=== PATIENT | female | born 1990 | race Caucasian/White ===

== ENCOUNTER 2024-08-07 12:40 | Outpatient (CLI) | payer OTHER, SELFPAY ==
--- OUTSIDE RECORDS SUMMARY | 2024-08-07 12:42 | XMS_ITS | Clinical Summary ---
Author Organization [employer] [facility] Address [place], [place] [address] Care Team Providers Care Drum Builder Name Role Phone Kimberly Hayes MD Primary Care Provider [phone] Allergies No known active allergies Medications Medication Sig Dispensed Refills Start Date End Date Status acetaminophen (TYLENOL EXTRA STRGTH) 500 mg tabletIndications :40 weeks gestation of Take 2 tablets by mouth every 6 hours if needed. Max acetaminophen dose: 4000mg in 24 hrs. 60 tablet 01/03/2020 Active ibuprofen (ADVIL; MOTRIN) 600 mg tabletIndications :40 weeks gestation of Take 1 tablet by mouth every 6 hours if needed for Pain. Maximum of 3200 mg in 24 hours. 60 tablet 01/03/2020 Active vitamin-folic acid 1 mg ( RX) tablet/capsuleInd ications:Vaginal delivery Take 1 tablet by mouth once daily. 100 tablet 01/03/2020 Active docusate (COLACE) 100 mg capsuleIndication s:Vaginal delivery Take 1 capsule by mouth once daily. 100 capsule 01/03/2020 Active Breast Pump - PurchaseIndicatio ns:Vaginal delivery Electric breast pump for home use. Gestation age at delivery: 40 weeks. Reason for need: Assist with breast feeding. Length of need: 24 months 1 Device 01/03/2020 Active Active Problems Problem Noted Date Diagnosed Date 40 weeks gestation of 01/02/2020 GERD (gastroesophageal reflux disease) Rh negative status during Family History Medical History Relation Name Comments Nephrolithiasis Paternal Grandmother Relation Name Status Comments Paternal Grandmother Social History Tobacco Use Types Packs/Day Years Used Date Smoking Tobacco: Never Smokeless Tobacco: Never Tobacco Cessation:Counseling Given: No Alcohol Use Standard Drinks/Week Comments Never 0 (1 standard drink = 0.6 oz pur e alcohol) Sex and Gender Information Value Date Recorded Sex Assigned at Not on file Gender Identity Not on file Sexual Orientation Not on file Obstetrics History Para Term AB IAB SAB Ectopic Multiple Livin g Live Births 1 1 1 0 0 0 0 0 0 1 1 Date Outcome GA Total Labor Labor/2nd/3rd Weight Sex Type Anes PTL Mahi A1 A5 Name Clin 2019 Term 40w 1d 0h 04m 3.02 kg (6 lb 10.7 oz) M Vag-S pont Epidur al Livin g 8 9 DANIEL FRAIRE Complications:None Delivery Location:[facility] Last Filed Vital Signs Vital Sign Reading Time Taken Comments Blood Pressure 119/82 01/03/2020 8:15 AM CDT Pulse 94 01/03/2020 8:15 AM CDT Temperature 36.6 ??C (97.8 ??F) 01/03/2020 8:15 AM CD T Respiratory Rate 16 01/03/2020 8:15 AM CDT Oxygen Saturation 97% 01/01/2020 9:35 PM CDT Inhaled Oxygen Concentration - - Weight 72.7 kg (160 lb 4.8 oz) 01/03/2020 6:15 A M CDT Height 170.2 cm (5' 7) 01/01/2020 3:53 AM CDT Body Mass Index 25.11 01/01/2020 3:53 AM CDT Plan of Treatment Health Maintenance Due Date Last Done Comments Tdap 2001 Depression screening for age 12+ 2002 HIV for age 15-65 2005 BMI (ht and wt on same day) for age 18+ 2008 Hepatitis C screening for ag e 18-79 2008 Tetanus booster 2010 COVID-19 vaccine series ( season) 2024 Influenza for age 9-49 06/10/2024 Pap test for age 21-65 12/15/2024 2, 12/15/2021 Pneumococcal series for age 6-64 Aged Out No longer eligible b ased on patient's age to complete this topic Procedures Procedure Name Priority Date/Time Associated Diagnosis Comments HPV HIGH RISK Routine 12/15/2021 9:20 AM COOK CANDY from Last 3 Months or Most Recently Relevant to Health Maintenance Results * HPV HIGH RISK (12/15/2021 9:20 AM COOK CANDY) TYPE 16 Negative Negative 12/17/2021 10:49 AM COOK CANDY [facility] TYPE 18 Negative Negative 12/17/2021 10:49 AM COOK CANDY [facility] OTHER HIGH RISK TYPES Negative Negative 12/17/2021 10:49 AM COOK CANDY [facility] Other (Cervical/Vagina l) 12/15/2021 9:20 AM COOK CANDY 12/16/2021 7:56 AM COOK CANDY Narrative [facility] - 12/17/2021 10:49 AM COOK CANDY HPV types 16, 18, 31, 33, 35, 39, 45, 51, 52, 56, 58, 59, 66 and 68 DNA were undetectable or below the pre-set threshold. Methodology: Jennifer Carlie 4800 HPV Test Giselle CLEMENS MICROBIOLOGY [facility] [address] [place] [address], from Last 3 Months or Most Recently Relevant to Health Maintenance Advance Directives * Full Code (Latest Code Status on File) Date Activated Date Inactivated Comments 01/01/2020 1:10 PM 01/03/2020 1:40 PM Question Answer Comments Code Status Discussion: Discussed Care Teams Drum Builder Relationship Specialty Start Date End Date Kimberly Hayes MD [address] [place] [address] [facility] - General 10/12/19
--- NOTE | 2024-08-07 13:00 | US_ITS ---
Patient: MONROE FRAIRE Facility:?[facility] Patient ID:?[id number] Site Patient ID:?[id number]. Site :?1990 Study:?US-OB Pelvis dating >14 weeks-08/07/2024 1:11:50 PM Ordering Physician:Gris Roberts Final Report: INDICATION: 2nd trimester ultrasound for dating and viability. TECHNIQUE: Ultrasound OB pelvis transabdominal. Real-time tapia-scale imaging of the fetus was performed. COMPARISON: None. FINDINGS: Single live intrauterine gestation in transverse position. Placenta is posterior. Cervical length measures 4.0 centimeter. heart rate measures 155 beats per minute. Single largest vertical pocket of amniotic fluid measures 4.8 cm. Biometry: BPD: 3.6 cm, 17 weeks 0 day HC: 13.3 cm, 16 weeks 6 day AC: 11.8 cm, 17 weeks 4 day FL: 2.4 cm, 17 weeks 1 day Estimated weight is 187 gram +/-28 gm (91 percentile). age by ultrasound 17 weeks 1 day PAVAN by ultrasound 01/14/2025 IMPRESSION: Single viable intrauterine with estimated gestational age of 17 weeks 1 day and weight of 187 gram. Dictated by Shara Balbuena MD @ 08/08/2024 11:00:34 AM Signed by:?Shara Balbuena MD @08/08/2024 11:00:34 AM (Electronic Signature)
== END 2024-08-07 12:41 | disposition home or self-care (01) ==
LOC: US 12:41
PROVIDERS: Visit Provider Advanced Practice Midwife
DX: Z34.92 Encounter for supervision of normal pregnancy, unspecified, second trimester (principal); Z3A.17 17 weeks gestation of pregnancy
CPT/HCPCS: 76815; 86592; 86703; 86704; 86706; 86762; 86787; 86803; 86850; 86900; 86901; 87086; 87340

== ENCOUNTER 2024-09-04 13:54 | Outpatient (CLI) | payer OTHER, SELFPAY ==
--- NOTE | 2024-09-04 13:45 | CRLHL7_ITS ---
For Patients: As a result of the Century Cures Act, medical imaging exams and procedure reports are released immediately into your electronic medical record. You may view this report before your referring provider. If you have questions, please contact your health care provider. INDICATION: Evaluate anatomy. COMPARISON: 08/07/2024 TECHNIQUE: Real time tapia scale imaging of the fetus was performed as well as color Doppler analysis of the umbilical vessels. FINDINGS: Sonographic imaging demonstrates a single living intrauterine gestation. Fetus demonstrates a regular cardiac rate of 155 beats per minute. Fetus has a variable position. The placenta lies posterior fundal without evidence of placenta previa. Placental edge located 7.9 cm from the internal cervical os. Amniotic fluid volume appears normal. Single deepest vertical pocket: 6.1 cm. The cervix is closed and measures 5.4 cm in length. The composite ultrasound gestational age is calculated at 21 weeks 3 days with an estimated sonographic due date of 01/12/2025. The estimated weight is 438 grams which lies at the 96th %. The following biometric measurements were obtained: Biparietal diameter: 4.9 cm/20 weeks 5 days 61st% Head circumference: 18.4 cm/20 weeks 6 days 59th% Abdominal circumference: 17.0 cm/22 weeks 0 days 88th% Femur length: 3.6 cm/21 weeks 3 days 77th% The HC/AC ratio measures: 1.08 range (1.06-1.24) On anatomic survey, there is a normal appearance of the cerebral ventricles, cavum septi pellucidi, cisterna magna and cerebellum. The nose, lips, and facial profile appear normal. The cervical, thoracic and lumbar spine are not well visualized. There is a normal four-chamber heart view and the left and right ventricular outflow tracts appear normal. The diaphragm and stomach appear normal. The kidneys and bladder also appear normal. There is a normal three-vessel cord and cord insertion site. The four extremities appear normal. IMPRESSION: Sonographic gestational age 21 weeks 3 days and a sonographic due date of 01/12/2025. Sonographic age 1 week ahead of the clinical age. Estimated weight 96th percentile. Abdominal circumference 88th percentile. Incomplete visualization of the spine. Remainder of the anatomic survey normal. Short-term follow-up recommended. Dictated by Kentrell Sherman MD @ 09/05/2024 12:16:23 PM (Electronically Signed)
--- OUTSIDE RECORDS SUMMARY | 2024-09-04 13:56 | XMS_ITS | Clinical Summary ---
Author Organization [employer] [facility] Address [place], [place] [address] Care Team Providers Care Litigation Specialist Name Role Phone Kimberly Hayes MD Primary Care Provider [phone] Allergies No known active allergies Medications Medication [...] g 8 9 DANIEL FRAIRE Complications:None Delivery Location:[facility] Last Filed Vital Signs Vital Sign Reading Time Taken Comments Blood Pressure 119/82 01/03/2020 8:15 AM CDT Pulse 94 01/03/2020 8:15 AM CDT Temperature 36.6 C (97.8 F) 01/03/2020 8:15 AM CDT Respiratory Rate 16 01/03/2020 8:15 AM CDT [...] 2008 Tetanus booster 2010 COVID-19 vaccine series (2023- season) 2024 Influenza for age 9-49 06/10/2024 Pap test for age 21-65 12/15/2024 2, 12/15/2021 Pneumococcal series for age 6-64 Aged Out No longer eligible b ased on patient's age to complete this topic Procedures Procedure Name Priority Date/Time Associated Diagnosis Comments HPV HIGH RISK Routine 12/15/2021 9:20 AM [facility] TECHNICIAN from Last 3 Months or Most Recently Relevant to Health Maintenance Results * HPV HIGH RISK (12/15/2021 9:20 AM [facility]OR[facility] TECHNICIAN) TYPE 16 Negative Negative 12/17/2021 10:49 AM [facility] TECHNICIAN [facility] TYPE 18 Negative Negative 12/17/2021 10:49 AM [facility] LABORATORY TECHNICIAN [facility] OTHER HIGH RISK TYPES Negative Negative 12/17/2021 10:49 AM [facility] LABORATORY TECHNICIAN [facility] Other (Cervical/Vagina l) 12/15/2021 9:20 AM [facility] LABOR[facility] TECHNICIAN 12/16/2021 7:56 AM [facility]ORATORY TECHNICIAN Narrative [facility] - 12/17/2021 10:49 AM [facility] TECHNICIAN HPV types 16, 18, 31, 33, 35, 39, 45, 51, 52, 56, 58, 59, 66 and 68 DNA were undetectable or below the pre-set threshold. Methodology: Jennifer Carlie 4800 HPV Test Giselle CLEMENS MICROBIOLOGY [facility] [address] [place] [address], from Last 3 Months or Most Recently Relevant to Health Maintenance Advance Directives * Full Code (Latest Code Status on File) Date Activated Date Inactivated Comments 01/01/2020 1:10 PM 01/03/2020 1:40 PM Question Answer Comments Code Status Discussion: Discussed Care Teams Litigation Specialist Relationship Specialty Start Date End Date Kimberly Hayes MD [address] [place] [address] [facility] - General 10/12/19
== END 2024-09-04 13:55 | disposition home or self-care (01) ==
LOC: US 13:55
PROVIDERS: Visit Provider Advanced Practice Midwife
DX: Z34.92 Encounter for supervision of normal pregnancy, unspecified, second trimester (principal); Z3A.21 21 weeks gestation of pregnancy
CPT/HCPCS: 76805

== ENCOUNTER 2024-10-30 10:42 | Outpatient (CLI) | payer OTHER, SELFPAY | END 2024-10-30 10:43 | disposition home or self-care (01) | LOC: NFLDREF 10-31 01:56 | PROVIDERS: Visit Provider Physician Assistant | DX: Z34.83 Encounter for supervision of other normal pregnancy, third trimester (principal) | CPT/HCPCS: 85461; 86592; 86850 ==

== ENCOUNTER 2024-12-25 15:17 | Outpatient (CLI) | payer OTHER, SELFPAY ==
[2024-12-26 13:31] LABS: Strep B DNA Probe Negative (Negative)
[2024-12-26 13:52] LABS: Strep B Susceptibility Needed? No
== END 2024-12-25 15:18 | disposition home or self-care (01) ==
LOC: NFLDREF 15:17
PROVIDERS: Visit Provider Advanced Practice Midwife
DX: Z34.93 Encounter for supervision of normal pregnancy, unspecified, third trimester (principal); Z3A.36 36 weeks gestation of pregnancy
CPT/HCPCS: 87081; 87653

== ENCOUNTER 2025-01-17 11:12 | Inpatient (IN) | payer OTHER, SELFPAY ==
[2025-01-17] VITALS (11 sets, daily range): BP systolic 112–131; BP diastolic 59–80; PULSE 75–95; RESP 16–18; TEMP 36.5–36.6; O2SAT 97–100; BMI 27.7
--- NOTE | 2025-01-17 11:28 | P.LDBA_ITS ---
Subjective History of Present Illness Date Seen: 01/17/25 Narrative: Patient is being admitted to Labor and Delivery for delivery of her in the car on the way to the hospital. She is a 34 year old at 39.5 weeks gestation. Her full history and physical was dictated by [] on []. Please see this for details. [] Specific Issues/Plans Partner: Franklin?(interested in assisting with , discuss further at next visit) H&P:? []? # Rh negative? * Rhogam at 28 wks-10/30/24 * PP-? #? PNC started at 16 weeks pt choice # Incomplete views of the spine Recommended follow-up in weeks: patient declined ? Imaging:??? [Summary of level II or follow up US here; BPP scores not necessary]? Vaccinations:?? COVID: initial series, not boosted, declined booster Flu: declined Tdap: declined 32 week mental health: PHQ - 0/JOHN - 0 34 wk HGB: 14.2? Last pap:? [Only high-risk abnormal pap results in problem list]? Comments: Assessment:??G[ ] P[ ] at [ ] weeks gestation?? GBS [negative/positive]? Patient is coping [] with challenges of labor.?? Labor type: [Induced/Spontaneous], [Early/Active] labor? Category [1, 2, 3] FHR pattern.? complicated by: [] Plan:?? * ?Admit to L & D? * IV access: * Monitoring per policy: [continuous or intermittent]? * Candidate for analgesia of choice.? Planning [] for pain management * [Desires waterbirth.? Consent signed and Hep C negative] * [Expectant management at this time] [Reviewed risks and benefits of IOL with Cook balloon, Pitocin vs Cytotec/Cervidil. Pt prefers Cytotec. Pitocin to follow if needed.] * [GBS prophylaxis initiated for GBS positive status. Will treat with antibiotics per protocol.] * [Monitor blood pressures. Consider labs if continue to be elevated.]? * Patient encouraged to reposition and ambulate to promote physiologic labor and . * Anticipate ? OB Exam Physical Exam Vital signs: Pulse BP Pulse Ox 83 124/59 L 100 01/17/25 11:16 01/17/25 11:16 01/17/25 11:16 Detailed Labor and Delivery Exam Patient Gravid: Yes
--- NOTE | 2025-01-17 11:30 | P.OBHP_ITS ---
OB - H&P: HPI Labor/Induction History of Present Illness Date Seen: 01/17/25 Chief Complaint: The patient is a 34 year old 4 para 2 at 39.5 weeks gestation by LMP, who presents after delivery of her daughter in the car on the way to the hospital. Chief complaint: maternity : 4 Para: 3 Date of last menstrual period: 04/14/24 Estimated date of delivery: 01/19/25 Gestational age based on last menstrual period: 39 Narrative: Mone Casey is a 34 year old female Here care started at 16.3 weeks by patient choice. She has had limited care since with a total of 6 visits. Ultrasounds First trimester: Single viable intrauterine with estimated gestational age of 17 weeks 1 day and weight of 187 gram. Anatomy scan: Sonographic gestational age 21 weeks 3 days and a sonographic due date of 01/12/2025. Sonographic age 1 week ahead of the clinical age. Estimated weight 96th percentile. Abdominal circumference 88th percentile. Incomplete visualization of the spine. Remainder of the anatomic survey normal. Short-term follow-up recommended. Specific Issues/Plans Partner: Franklin?(interested in assisting with , discuss further at next visit) H&P:? []? # Rh negative? * Rhogam at 28 wks-10/30/24 * PP-? #? PNC started at 16 weeks pt choice # Incomplete views of the spine Recommended follow-up in weeks: patient declined ? Imaging:??? [Summary of level II or follow up US here; BPP scores not necessary]? Vaccinations:?? COVID: initial series, not boosted, declined booster Flu: declined Tdap: declined 32 week mental health: PHQ - 0/JOHN - 0 34 wk HGB: 14.2? Last pap:? [Only high-risk abnormal pap results in problem list]? History of Present Dating criteria: based on LMP care: limited care Ultrasounds: normal 1st trimester US and other Abnormal ultrasound findings: incomplete view of the spine, patient declined further follow up. Medical complications: none Labs Blood type: 0 (-) negative Review of Systems Status of ROS: Reports: 10 or more systems reviewed and unremarkable except as noted in History and below Meds Home Medications and Allergies Home Medications ?Medication ?Instructions ?Recorded ?Confirmed ?Type vit 168-iron 27 mg-folic cap PO 08/07/24 01/11/25 History acid 800 mcg-omega3 235 mg capsule (One-A-Day -1) Allergies Allergy/AdvReac Type Severity Reaction Status Date / Time No Known Drug Allergies Allergy Verified 01/11/25 14:32 OB - H&P: Exam Physical Exam: Vital signs: Pulse BP Pulse Ox 83 124/59 L 100 01/17/25 11:16 01/17/25 11:16 01/17/25 11:16 Narrative: VSS? General Appearance:? Alert,?appropriate appearance?for age. No acute distress? HEENT Exam:? Grossly?normal.? Chest/Respiratory Exam: Normal respiratory effort, symmetrical chest wall rise. Clear to auscultation.? Cardiovascular Exam: Regular rate and rhythm. S1, S2, no murmur, click, gallop, or rubs.? Gastrointestinal Exam: non-tender?? Musculoskeletal Exam: Back is straight and non-tender, full ROM of upper and lower extremities.? Skin: no rash or abnormalities? Neurologic Exam: Normal gait and speech, no tremor.? Psychiatric Exam: Alert and oriented, appropriate affect.??? OB - Problem Based A/P Additional Plan (1) care and examination immediately after delivery: Status: Acute (2) Lactating mother: Status: Acute (3) Rh negative status during : Status: Acute (4) Precipitous delivery, delivered (current hospitalization): Status: Acute Plan G4 now P3 admitted at 39.5 weeks after precipitous delivery in car on the way to the hospital problems: Rh negative-received Rhogam at 28 weeks Limited care Incomplete views of the spine on anatomy scan Delivery/Labor/Induction Plan Plan: other
--- NOTE | 2025-01-17 11:43 | W.PM.OBVAGDE ---
OB Procedure Vag Delivery Mother Details Mother Details: The patient is a 34 year-old, 4, Para 3, admitted on 01/17/25 at 39.5 weeks gestation. : 4 Para: 3 Weeks Gestation: 39.5 Admission Date: 01/17/25 Additional Details Amniotic Membrane Status: SROM Amniotic Membrane Rupture Date: 01/17/25 Amniotic Membrane Fluid Description: Clear Analgesia/Anesthesia Type: None Waterbirth: No Intrapartal Events: Precipitous Labor <3 Hrs Labor Onset: 08:00 Heart: Not monitored Delivery Details Delivery Date: 01/17/25 Delivery Time: 11:01 Route of delivery: Infant Gender: Female Infant Viability: Alive; Heart Rate Present Delivery Details: 34?y.o?at 39.5 weeks.? Delivered via spontaneous vaginal delivery in the car on the way to the hospital. Patient reports delivery time as 1101, reports her water broke in the car and she delivered shortly after. On arrival she was holding skin to skin with umbilical cord intact. Placenta was delivered once brought to delivery room at 1120 and appeared intact. Cord was clamped and cut just prior to placenta delivery by FOB. ? Infant weight pending. ?? ? Spontaneous vaginal delivery of?a viable? female .?? Shoulder dystocia: no?? Meconium stained?fluid: no? Water : no? ? ? Weight is pending. ? Placenta delivered spontaneously and?complete?at 1120 with a?3 vessel?cord.?? Bleeding controlled with fundal massage.? ? Lacerations:? intact ? Bleeding?post delivery?was: minimal. ?The fundus was firm to palpation.? Blood loss: 25?mL.? Blood loss measurement type: QBL? There did not appear to be any blood loss in the car. Visualized as patient was transferred from car to wheelchair. ? ? Sponge,?lap?and needles counts are correct.? Mother and were stable after delivery.? Additional Details Shoulder Dystocia: No Placenta Delivery Time: 11:20 Placental Delivery Description: Spontaneous Procedure Done: Global Blood Loss: 25 Laceration: None Blood Loss Measurement Type: QBL Bakri Used: No Sponge/Need Count Correct: Yes Cord Vessel Description: 3 Vessels Event Summary Status: Mother and infant were stable after delivery. Disposition: floor
[2025-01-18 00:03] VITALS: BP 121/75; PULSE 76; RESP 16; TEMP 36.4
[2025-01-18 04:30] VITALS: BP 113/76; PULSE 87; RESP 16; TEMP 36.4; O2SAT 99
[2025-01-18 05:50] LABS: Hemoglobin* 14.1 gm/dL (12.0-16.0)
--- NOTE | 2025-01-18 07:50 | P.DS_ITS ---
Documented by User: Jewell Blanca 01/18/25 08:11 DS: Providers Provider Time Seen by Provider: 07:50 Date Seen: 01/18/25 Date of admission: 01/17/25 11:12 Primary care physician: Kimberly Hayes MD Admitting Clinician: Alejandra Hi CNM Attending Physician on discharge: Puma Taylor CNM Date of Discharge: 01/18/25 DS: Diagnosis Discharge Diagnosis (1) Lactating mother: Status: Acute (2) care following vaginal delivery: Status: Acute (3) Rh negative status during : Status: Acute Exam Narrative: Exam Narrative: Vitals Reviewed Constitutional:? Alert and oriented x3 HEENT:? Normocephalic, atraumatic Neck:? Supple Lungs:? Clear to auscultation bilaterally Heart:? Regular rate and rhythm, no murmur, rub or gallop Abdomen:? Soft, nontender. FUNDUS: firm, -1, left Extremities:? No edema or erythema NEURO: Normal speech. Const: Vital Signs, click to edit/add: Vital Signs - 24 hr 01/17/25 11:16 01/17/25 11:33 01/17/25 11:46 Temperature Pulse Rate 83 90 77 Pulse Rate [Blood Pressure Cuff] Respiratory Rate Blood Pressure 124/59 L 126/66 125/68 Blood Pressure [Le ft Arm] Pulse Oximetry 100 Oxygen Delivery [facility] 01/17/25 12:01 01/17/25 12:16 01/17/25 12:31 Temperature Pulse Rate 80 75 81 Pulse Rate [Blood Pressure Cuff] Respiratory Rate Blood Pressure 112/70 116/70 118/74 Blood Pressure [Le ft Arm] Pulse Oximetry Oxygen Delivery [facility] 01/17/25 12:46 01/17/25 13:01 01/17/25 13:16 Temperature Pulse Rate 93 95 Pulse Rate [Blood Pressure Cuff] Respiratory Rate Blood Pressure 115/68 119/69 120/73 Blood Pressure [Le ft Arm] Pulse [facility] 01[facility] 15:51 01/17/25 20:48 01/18/25 00:03 Temperature 97.8 F 97.7 F 97.6 F Pulse Rate Pulse Rate [Blood Pressure Cuff] 85 93 76 Respiratory Rate 16 18 16 Blood Pressure Blood Pressure [Le ft Arm] 117/80 131/78 121/75 Pulse Oximetry 97 99 Oxygen Delivery Me thod Room Air Room Air Room Air 01/18/25 04:30 Temperature 97.5 F L Pulse Rate Pulse Rate [Blood Pressure Cuff] 87 Respiratory Rate 16 Blood Pressure Blood Pressure [Le ft Arm] 113/76 Pulse Oximetry 99 Oxygen Delivery Me thod Room Air OB - DS: Summary Hospital Course Hospital Course: The patient is a 34 year old G 4 P 3 at 39 weeks 5 days gestation that was admitted to the Center on 01/17/25 for delivery of placenta status post vehicle delivery. She had an uncomplicated vaginal delivery en route to hospital. She delivered a viable female infant. She is breast feeding. the patient has done well. Patient is , states is latching well, audible swallows. Knows to reach out to if necessary. Reviewed S/Sx preeclampsia, when to call. Discussed depression/anxiety, daily coping, when to reach out for concerns. Reviewed bleeding patterns, activity balance. What to watch for S/Sx of infection. Prescriptions for pain and constipation. Awaiting blood type for need for Rhogam, patient OK for administration if needed. Plans for control is NFP. Reports no complications with voiding, passing gas. States bleeding is moderate to small, without clots. Reports no concerns for breasts. Peripartum Data Infant delivery method: Vaginal Laceration description: None complications: none [place] Infant Gender: Female Infant Discharge Plan: Home Status at Discharge Functional status at discharge: independent ambulation Overall status at discharge: patient is progressing back to baseline Time Spent with Patient Time attestation: Total time spent providing and/or coordinating discharge services: Discharge Plan Discharge Disposition: Home, Self-Care Date of Admission: 01/17/25 11:12 Attending Provider on Discharge: Isabel Taylor Primary Care Provider: Kimberly Hayes Condition: Stable Anticipated Discharge Date/Time: 01/18/25 13:00 Discharge Medications: New docusate sodium 100 mg Capsule 100 mg PO DAILY Qty: 120 0RF Rx Instructions: Take 1-2 tablets daily as needed for constipation. Continued One-A-Day -1 27 mg iron- 800 mcg-235 mg capsule 1 cap PO DAILY Discharge Orders: Discharge Order (Routine); Ordered 01/18/25 Ordered By: Isabel Taylor Patient Education: OB Vaginal/Breast Feeding Additional Instructions: Discharge instructions were reviewed with the patient including signs and symptoms of infection and home going medications Nothing vaginally for 6 weeks: no tampons or intercourse Do not drive while taking narcotic pain medication(s) Off Work or School for 8 weeks Symptoms to report to doctor: * Bleeding that saturates more than one pad per hour * Passing clots larger than the size of a golf ball * Pain not relieved by prescribed medication * Fever above 100.4 degrees Fahrenheit * A foul vaginal odor * Difficulty in emotions, mood, and functions * Thoughts of hurting yourself and/or * Painful, reddened area in your breast * Any drainage, redness, or tenderness in your IV/epidural site * Severe headache that doesn't improve after taking medications * Changes in vision, including temporary loss of vision, blurred vision, and/or light sensitivity * Upper abdominal pain (usually under ribs on the right side) * Decrease in urination or painful, frequent urinating * Chest pain * Shortness of breath * Tenderness or pain with redness and/swelling in the calf(s) of your leg 2-week visit: discuss feeding concerns, review control options and screen for anxiety/depression. 6-week visit for an annual exam. consultation services are available to all mothers and babies for the first year after delivery.? To make an appointment, please call [phone]. Activity Level: Activity as Tolerated Discharge Diet: Regular Follow Up Appointments: [facility] [Provider Group] Forms: [facility] Info Instructions Documented by User: Isabel Taylor CNM 01/18/25 08:40 DS: Diagnosis Discharge Diagnosis (1) Lactating mother: Status: Acute (2) care following vaginal delivery: Status: Acute (3) Rh negative status during : Status: Acute OB - DS: Summary Hospital Course Hospital Course: The patient is a 34 year old G 4 P 3 at 39 weeks 5 days gestation that was admitted to the Center on 01/17/25 for delivery of placenta status post vehicle delivery. She had an uncomplicated vaginal delivery en route to hospital. She delivered a viable female . She is breast feeding. the patient has done well. Patient is , states is latching well, audible swallows. Knows to reach out to if necessary. Reviewed S/Sx preeclampsia, when to call. Discussed depression/anxiety, daily coping, when to reach out for concerns. Reviewed bleeding patterns, activity balance. What to watch for S/Sx of infection. Prescriptions for pain and constipation. Awaiting blood type for need for Rhogam, patient OK for administration if needed. Plans for control is NFP. Reports no complications with voiding, passing gas. States bleeding is moderate to small, without clots. Reports no concerns for breasts. Declines prescription for ibuprofen. Discussed can take OTC Tylenol and ibuprofen if needed for pain per label instructions. Discharge Plan Discharge Disposition: Home, Self-Care Date of Admission: 01/17/25 11:12 Attending Provider on Discharge: Isabel Taylor Primary Care Provider: Kimberly Hayes Condition: Stable Anticipated Discharge Date/Time: 01/18/25 13:00 Discharge Medications: New docusate sodium 100 mg Capsule 100 mg PO DAILY Qty: 120 0RF Rx Instructions: Take 1-2 tablets daily as needed for constipation. Continued One-A-Day -1 27 mg iron- 800 mcg-235 mg capsule 1 cap PO DAILY Discharge Orders: Discharge Order (Routine); Ordered 01/18/25 Ordered By: Isabel Taylor Patient Education: OB Vaginal/Breast Feeding Additional Instructions: Discharge instructions were reviewed with the patient including signs and symptoms of infection and home going medications Nothing vaginally for 6 weeks: no tampons or intercourse Do not drive while taking narcotic pain medication(s) Off Work or School for 8 weeks Symptoms to report to doctor: * Bleeding that saturates more than one pad per hour * Passing clots larger than the size of a golf ball * Pain not relieved by prescribed medication * Fever above 100.4 degrees Fahrenheit * A foul vaginal odor * Difficulty in emotions, mood, and functions * Thoughts of hurting yourself and/or * Painful, reddened area in your breast * Any drainage, redness, or tenderness in your IV/epidural site * Severe headache that doesn't improve after taking medications * Changes in vision, including temporary loss of vision, blurred vision, and/or light sensitivity * Upper abdominal pain (usually under ribs on the right side) * Decrease in urination or painful, frequent urinating * Chest pain * Shortness of breath * Tenderness or pain with redness and/swelling in the calf(s) of your leg 2-week visit: discuss feeding concerns, review control options and screen for anxiety/depression. 6-week visit for an annual exam. consultation services are available to all mothers and babies for the first year after delivery.? To make an appointment, please call [phone]. Activity Level: Activity as Tolerated Discharge Diet: Regular Follow Up Appointments: [facility] [Provider Group] Forms: [facility] Info Instructions
[2025-01-18 08:38] VITALS: BP 98/65; PULSE 88; RESP 16; TEMP 36.4; O2SAT 96
[2025-01-19 17:37] LABS: Rapid Plasma Reagin (RPR) Non Reactive (Non Reactive)
== END 2025-01-18 15:15 | disposition home or self-care (01) | DRG 776 ==
PROVIDERS: Admitting Provider Advanced Practice Midwife; PCP Pediatrics; Visit Provider Advanced Practice Midwife
DX: Z39.0 Encounter for care and examination of mother immediately after delivery (principal); Z67.41 Type O blood, Rh negative
CPT/HCPCS: 36415; 85018; 85461; 86592; J2791